=== PATIENT | male | born 1945 | race Caucasian/White ===

== ENCOUNTER 2020-10-13 11:13 | Emergency (ER) | payer MEDICARE, MEDICAID ==
[~2020-10-13] VITALS: Ht 172.7 cm; Wt 77.0 kg
[2020-10-13 11:50] LABS: EOSINOPHILS % 0.9 % (0.0-5.0); HEMATOCRIT. 48.8 % (42.0-52.0); HEMOGLOBIN. 16.7 g/dL (14.0-18.0); MEAN CORPUSCULAR HEMOGLOBIN 31.5 pg (28.0-32.0); MEAN CORPUSCULAR VOLUME 91.9 fL (80.0-94.0); MEAN PLATELET VOLUME 7.4 fl (7.4-10.4); MONOCYTES % 5.8 % (2.0-8.0); NEUTROPHILS % 77.3 % (40.0-76.0); PLATELET 186 x1000/uL (130-400); RED BLOOD CELL COUNT 5.31 mill/uL (4.7-6.1); RED CELL DISTRIBUTION WIDTH 14.5 % (11.6-14.6)
[2020-10-13 11:57] LABS: CHLORIDE 107 mEq/L (98-107)
[2020-10-13] MEDS ORDERED: SODIUM CHLORIDE 0.9% 1,000 ML IV ONE (12:15)
[2020-10-13] MEDS ORDERED: ACETAMINOPHEN 325MG TABLET PO ONE (12:45)
[2020-10-13] MEDS ORDERED: MECLIZINE 25MG TABLET PO ONE (12:45)
[2020-10-13 13:45] VITALS: BP 112/72
== END 2020-10-13 13:56 | disposition home or self-care (01) ==
LOC: ER 11:43
DX: R42 Dizziness and giddiness (principal); J45.909 Unspecified asthma, uncomplicated; I10 Essential (primary) hypertension; E11.9 Type 2 diabetes mellitus without complications
CPT/HCPCS: 36415; 71045; 80053; 83880; 84484; 85025; 93005; 99285; J7030